=== PATIENT | female | born 1995 | race Caucasian/White ===

== ENCOUNTER 2021-02-18 17:38 | Emergency (ER) | payer BC ==
[~2021-02-18] VITALS: Ht 167.6 cm; Wt 79.5 kg
[2021-02-18] MEDS ORDERED: TRI NESSA PO (18:10)
[2021-02-18] MEDS ORDERED: ALLE180T33 PO (18:10)
--- NOTE | 2021-02-18 18:31 | REP ---
INDICATION: trauma. COMPARISON: None. TECHNIQUE: Three views of the left shoulder were performed. FINDINGS: There is an anterior glenohumeral dislocation. There is no obvious fracture. The acromioclavicular relationship is maintained. IMPRESSION: Anterior glenohumeral dislocation. <Electronically signed by Danilo Quintanilla > 02/18/21 [id number]
[2021-02-18] MEDS ORDERED: MORPHINE 4 MG/ML 1ML VIAL/SYRINGE (J2270) IV ONE (18:35)
[2021-02-18] MEDS ORDERED: diazePAM 10MG/2ML SYRINGE (J3360 PER 5MG) IV ONE (18:35)
[2021-02-18] MEDS ORDERED: NS 1,000 ML IV SCH (18:35)
--- NOTE | 2021-02-18 20:14 | REP ---
INDICATION: post reduction; left shoulder. COMPARISON: Earlier today TECHNIQUE: Single AP view FINDINGS: The previously present anterior glenohumeral dislocation appears to have been successfully reduced within the confines of the limitations of this single AP exam. Once again, the acromioclavicular relationship is within normal limits. No fracture seems to have developed since the last exam. IMPRESSION: Evidence of a 6 sessile reduction of the previously present anterior glenohumeral dislocation and without evidence of a fracture on this limited single AP view. Consider CT. <Electronically signed by Danilo Quintanilla > 02/18/21 2010
[2021-02-18 20:37] VITALS: BP 122/73
== END 2021-02-18 20:37 | disposition home or self-care (01) ==
LOC: M ED 17:38
DX: S43.005A Unspecified dislocation of left shoulder joint, initial encounter (principal); V16.0XXA Pedal cycle driver injured in collision with other nonmotor vehicle in nontraffic accident, initial encounter; Y92.830 Public park as the place of occurrence of the external cause
CPT/HCPCS: 73020; 73030; 94760; 99284; J2270; J3360

== ENCOUNTER → 2021-02-22 | Outpatient (CLI) | payer BC ==
[~2021-02-22] MED LIST: ALLE180T33 PO; TRI NESSA PO
--- NOTE | 2021-02-22 11:46 | REP ---
INDICATION: UNSPECIFIED DISLOCATION OF LEFT SHOULDER JOINT, INIT ENCNTR. COMPARISON: 02/18/2021 TECHNIQUE: Axillary view of the left shoulder FINDINGS: Glenohumeral joint appears intact and without evidence for dislocation. IMPRESSION: No obvious glenohumeral joint dislocation noted. <Electronically signed by Flaquito Monique > 02/22/21 114
== END ==
LOC: M SOG 11:21
PROVIDERS: ATTEND Orthopaedic Surgery Sports Medicine
DX: S43.005A Unspecified dislocation of left shoulder joint, initial encounter (principal); W18.30XA Fall on same level, unspecified, initial encounter; Y92.009 Unspecified place in unspecified non-institutional (private) residence as the place of occurrence of the external cause